=== PATIENT | female | born 1965 | race Hispanic/Latino ===

== ENCOUNTER 2017-03-05 22:49 | Emergency (ER) | payer MEDICARE, MEDICAID ==
[2017-03-05] MEDS ORDERED: Ketorolac Tromethamine 30 MG/ML VIAL ONE (23:39)
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
== END 2017-03-06 00:02 | disposition home or self-care (01) ==
LOC: SCSER 22:49
DX: S83.91XA Sprain of unspecified site of right knee, initial encounter (principal); E11.9 Type 2 diabetes mellitus without complications; I10 Essential (primary) hypertension; J45.909 Unspecified asthma, uncomplicated; F17.210 Nicotine dependence, cigarettes, uncomplicated; V40.5XXA Car driver injured in collision with pedestrian or animal in traffic accident, initial encounter
CPT/HCPCS: 96372; J1885

== ENCOUNTER 2017-03-18 17:38 | Emergency (ER) | payer MEDICARE, MEDICAID ==
[2017-03-18] MEDS ORDERED: predniSONE 20 MG TAB ONE (18:23)
== END 2017-03-18 18:44 | disposition home or self-care (01) ==
LOC: ERS 17:38
DX: T78.40XA Allergy, unspecified, initial encounter (principal); E11.9 Type 2 diabetes mellitus without complications; I10 Essential (primary) hypertension; J45.909 Unspecified asthma, uncomplicated; J43.9 Emphysema, unspecified; F41.9 Anxiety disorder, unspecified; F17.290 Nicotine dependence, other tobacco product, uncomplicated
CPT/HCPCS: 99283; J7506

== ENCOUNTER 2017-03-19 22:55 | Emergency (ER) | payer MEDICARE, MEDICAID | END 2017-03-19 23:24 | disposition left against medical advice (07) | LOC: ERS 22:55 | DX: L29.9 Pruritus, unspecified (principal); E11.9 Type 2 diabetes mellitus without complications; I10 Essential (primary) hypertension; J43.9 Emphysema, unspecified; J45.909 Unspecified asthma, uncomplicated; F41.9 Anxiety disorder, unspecified; F17.290 Nicotine dependence, other tobacco product, uncomplicated | CPT/HCPCS: 99282 ==

== ENCOUNTER 2017-10-10 10:51 | Emergency (ER) | payer MEDICARE, MEDICAID ==
[2017-10-10] MEDS ORDERED: Ketorolac Tromethamine 30 MG/ML VIAL ONE (11:56)
[2017-10-10] MEDS ORDERED: predniSONE 10 MG TAB ONE (11:56)
[2017-10-10] MEDS ORDERED: predniSONE 20 MG TAB ONE (11:56)
== END 2017-10-10 12:19 | disposition home or self-care (01) ==
LOC: SCSER 10:51
DX: M54.10 Radiculopathy, site unspecified (principal); E11.9 Type 2 diabetes mellitus without complications; I10 Essential (primary) hypertension; J43.9 Emphysema, unspecified; F17.210 Nicotine dependence, cigarettes, uncomplicated; Z71.6 Tobacco abuse counseling; Z79.899 Other long term (current) drug therapy
CPT/HCPCS: 96372; 99406; J1885; J7506; J7512

== ENCOUNTER 2017-12-24 13:45 | Outpatient (CLI) | payer MEDICARE, MEDICAID | END 2017-12-24 13:46 | disposition home or self-care (01) | LOC: BICMRI 13:45 | DX: M48.061 Spinal stenosis, lumbar region without neurogenic claudication (principal); M54.5 Low back pain; M99.83 Other biomechanical lesions of lumbar region | CPT/HCPCS: 72148 ==

== ENCOUNTER 2019-01-05 00:17 | Emergency (ER) | payer MEDICARE, OTHER ==
[2019-01-05] MEDS ORDERED: Ketorolac Tromethamine 30 MG/ML VIAL ONE (01:31)
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
== END 2019-01-05 02:27 | disposition home or self-care (01) ==
LOC: ERS 00:17
DX: M25.552 Pain in left hip (principal); E11.9 Type 2 diabetes mellitus without complications; I10 Essential (primary) hypertension; J44.9 Chronic obstructive pulmonary disease, unspecified; F17.210 Nicotine dependence, cigarettes, uncomplicated; Z79.899 Other long term (current) drug therapy
CPT/HCPCS: 72170; 96372; J1885

== ENCOUNTER 2019-05-18 00:27 | Emergency (ER) | payer MEDICARE, OTHER ==
[2019-05-18 01:07] LABS: #Basophils 0.1 thou/uL (0.0-0.2); #Eosinphils 0.3 thou/uL (0.0-0.7); #Monocytes 0.6 thou/uL (0.11-0.59); #Neutrophils 6.2 thou/uL (1.40-6.50); %Basophils 0.9 % (0.0-1.0); %Eosinophils 3.1 % (0.0-10.0); %Lymphocytes 29.1 % (21.0-51.0); %Monocytes 6.2 % (0.0-10.0); %Neutrophils 60.7 % (42.0-75.0); Hemoglobin 16.7 g/dL (12.0-16.0); Mean Corpuscular HGB CONC 36.2 g/dL (32.0-36.0); Mean Corpuscular Hemoglobin 33.5 pg (27.0-31.0); Mean Corpuscular Volume 92.5 fL (78.0-98.0); Platelet Count 242 thou/uL (130-400); RBC Distribution Width 12.6 % (11.5-14.5); Red Blood Cell (RBC) Count 4.97 mill/uL (4.20-5.40); White Blood Cell (WBC) Count 10.2 thou/uL (4.8-10.8)
[2019-05-18] MEDS ORDERED: predniSONE 20 MG TAB ONE (01:11)
[2019-05-18] MEDS ORDERED: Aspirin Chewable 81 MG TAB ONE (01:11)
[2019-05-18] MEDS ORDERED: Albuterol Sulfate 2.5 mg/3 ml Neb ONE (01:13)
[2019-05-18] MEDS ORDERED: Nitroglycerin 0.4 MG TAB 1 EACH ONE (01:19)
[2019-05-18 02:52] LABS: Chloride 108 mmol/L (98-107); Potassium 3.3 mmol/L (3.5-5.1); Sodium 140 mmol/L (136-145)
[2019-05-18 02:53] LABS: Glucose 143 mg/dL (70-105)
[2019-05-18 02:54] LABS: Globulin 3.2 g/dL (2.4-3.5); Protein, Total 7.2 g/dL (6.0-8.3)
[2019-05-18 02:55] LABS: Anion Gap 15 mmol/L (10-20); Bilirubin, Total 0.4 mg/dL (0.2-1.2); Carbon Dioxide 20 mmol/L (22-29)
[2019-05-18 02:56] LABS: Alkaline Phosphatase 124 U/L (40-110)
[2019-05-18 02:57] LABS: Calc. Creatinine Clearance 0 mL/min (70-130); Estimated GFR-MDRD 82
[2019-05-18 02:58] LABS: BUN (Urea Nitrogen) 5 mg/dL (9.8-20.1)
[2019-05-18 02:59] LABS: ALT (SGPT) 37 U/L (8-55); AST (SGOT) 52 U/L (5-34)
[2019-05-18 03:02] LABS: Troponin I Less than 0.010 ng/mL (< 0.028)
--- NOTE | 2019-05-18 07:42 | RAD ---
Chest AP view INDICATION: Chest pain COMPARISON: July 20, 2014 FINDINGS: Lungs:The lungs are clear Cardiac silhouette:The cardiomediastinal silhouette appears within normal limits. Pulmonary vasculature:Normal Pleural spaces:No pleural effusion or pneumothorax is demonstrated. Upper abdomen:No abnormality seen. Osseous structures: No acute osseous abnormality. Additional findings:None. IMPRESSION: No acute cardiopulmonary abnormality.
== END 2019-05-18 03:10 | disposition home or self-care (01) ==
LOC: ERS 00:27
DX: J44.1 Chronic obstructive pulmonary disease with (acute) exacerbation (principal); R07.2 Precordial pain; E11.9 Type 2 diabetes mellitus without complications; I10 Essential (primary) hypertension; Z79.899 Other long term (current) drug therapy; Z79.891 Long term (current) use of opiate analgesic
CPT/HCPCS: 36415; 71045; 80053; 83880; 84484; 85025; 93005; 94640; 94760; J7512; J7611

== ENCOUNTER 2020-02-26 03:41 | Emergency (ER) | payer MEDICARE, MEDICAID ==
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
== END 2020-02-26 04:46 | disposition home or self-care (01) ==
LOC: ERS 03:41
DX: S13.4XXA Sprain of ligaments of cervical spine, initial encounter (principal); E11.9 Type 2 diabetes mellitus without complications; E66.9 Obesity, unspecified; I10 Essential (primary) hypertension; J43.9 Emphysema, unspecified; F17.210 Nicotine dependence, cigarettes, uncomplicated; Z79.899 Other long term (current) drug therapy; V89.2XXA Person injured in unspecified motor-vehicle accident, traffic, initial encounter
CPT/HCPCS: 71046

== ENCOUNTER 2021-03-05 14:02 | Outpatient (CLI) | payer MEDICARE, MEDICAID | END 2021-03-05 14:03 | disposition home or self-care (01) | LOC: BICCT 14:02 | DX: Z12.2 Encounter for screening for malignant neoplasm of respiratory organs (principal); F17.210 Nicotine dependence, cigarettes, uncomplicated; I70.0 Atherosclerosis of aorta; I25.10 Atherosclerotic heart disease of native coronary artery without angina pectoris | CPT/HCPCS: 71271 ==

== ENCOUNTER 2021-09-18 19:04 | Inpatient (IN) | payer MEDICARE, MEDICAID ==
[2021-09-18 19:47] LABS: #Basophils 0.1 thou/uL (0.0-0.2); #Eosinphils 0.2 thou/uL (0.0-0.7); #Lymphocytes 2.1 thou/uL (1.20-3.40); #Monocytes 0.4 thou/uL (0.11-0.59); #Neutrophils 6.3 thou/uL (1.40-6.50); %Basophils 0.8 % (0.0-1.0); %Eosinophils 2.2 % (0.0-10.0); %Lymphocytes 23.2 % (21.0-51.0); %Monocytes 4.3 % (0.0-10.0); %Neutrophils 69.5 % (42.0-75.0); Hemoglobin 16.4 g/dL (12.0-16.0); Mean Corpuscular HGB CONC 33.8 g/dL (32.0-36.0); Mean Corpuscular Hemoglobin 32.2 pg (27.0-31.0); Mean Corpuscular Volume 95.2 fL (78.0-98.0); Platelet Count 230 thou/uL (130-400); RBC Distribution Width 13.1 % (11.5-14.5); Red Blood Cell (RBC) Count 5.08 mill/uL (4.20-5.40); White Blood Cell (WBC) Count 9.1 thou/uL (4.8-10.8)
[2021-09-18] MEDS ORDERED: Nitroglycerin 2% Ointment 1 INCH/1 GM Packet ONE (20:04)
[2021-09-18] MEDS ORDERED: Aspirin Chewable 81 MG TAB ONE (20:04)
[2021-09-18 20:08] LABS: ALT (SGPT) 11 U/L (8-55); AST (SGOT) 11 U/L (5-34); Alkaline Phosphatase 111 U/L (40-110); Anion Gap 17 mmol/L (10-20); BUN (Urea Nitrogen) 8 mg/dL (9.8-20.1); Bilirubin, Total 0.3 mg/dL (0.2-1.2); Calc. Creatinine Clearance 0 mL/min (70-130); Calcium 9.1 mg/dL (7.8-10.44); Carbon Dioxide 20 mmol/L (22-29); Chloride 105 mmol/L (98-107); Glucose 414 mg/dL (70-105); Potassium 3.5 mmol/L (3.5-5.1); Sodium 138 mmol/L (136-145)
[2021-09-18] MEDS ORDERED: Calcium Carbonate 500 MG ChewTAB PO PRN (22:03)
[2021-09-18] MEDS ORDERED: Dextrose 50% Abboject 50 ML SYRINGE SLOW IVP PRN (22:03)
[2021-09-18] MEDS ORDERED: Ondansetron ODT 4 MG TAB PO PRN (22:03)
[2021-09-18] MEDS ORDERED: Melatonin 3 MG TAB PO PRN (22:03)
[2021-09-18] MEDS ORDERED: Dextrose 5% in Water 1,000 ML IV PRN (22:03)
[2021-09-18] MEDS ORDERED: Ondansetron PF 4 MG/2 ML Vial IVP PRN (22:03)
[2021-09-18] MEDS ORDERED: Acetaminophen 325 MG TAB PO PRN (22:03)
[2021-09-18] MEDS ORDERED: Albuterol Sulfate 1.25 MG/3 ML NEB NEB PRN (22:20)
[2021-09-18] MEDS: HYDROcodone/Acetaminophen 10/325 mg Tablet PO PRN (23:17)
[2021-09-18] MEDS: HumaLOG 300 UNITS/3 ML VIAL SC PRN (23:18)
[2021-09-18 23:46] LABS: Troponin I 0.011 ng/mL (< 0.028)
[2021-09-18 23:47] LABS: Cholesterol 174 mg/dl (< 200 Desired); HDL Cholesterol 29 mg/dL (>60 Neg Risk); Triglycerides 724 mg/dL (Less than 150)
[2021-09-19 00:15] VITALS: BMI 34.8
[2021-09-19] MEDS ORDERED: Lidocaine 1% w/Epinephrine 1:100K 20 ML VIAL FS SCH (00:45)
[2021-09-19 02:05] LABS: Troponin I Less than 0.010 ng/mL (< 0.028)
[2021-09-19] MEDS ORDERED: Cyclobenzaprine 10 MG TAB PO SCH ×2 (02:45→21:15)
[2021-09-19] MEDS ORDERED: Triple Antibiotic Ointment 30 GM TUBE TOP SCH (02:45)
[2021-09-19 04:52] LABS: Anion Gap 13 mmol/L (10-20); BUN (Urea Nitrogen) 9 mg/dL (9.8-20.1); Calc. Creatinine Clearance 135 mL/min (70-130); Calcium 8.8 mg/dL (7.8-10.44); Carbon Dioxide 23 mmol/L (22-29); Cardiac Risk 5.9 (Less than 4.5); Chloride 107 mmol/L (98-107); Cholesterol 160 mg/dl (< 200 Desired); Glucose 165 mg/dL (70-105); HDL Cholesterol 27 mg/dL (>60 Neg Risk); Potassium 3.4 mmol/L (3.5-5.1); Sodium 140 mmol/L (136-145); Triglycerides 473 mg/dL (Less than 150)
[2021-09-19] MEDS ORDERED: Potassium Chloride 20 MEQ TAB PO SCH (06:45)
[2021-09-19] MEDS: Mometasone/Formoterol 200/5 60 PUFF INH SCH ×2 (07:21→18:54)
[2021-09-19] MEDS: Alogliptin 25 MG TAB PO SCH (09:41)
[2021-09-19] MEDS: Fenofibrate 48 MG TAB PO SCH (09:41)
[2021-09-19] MEDS: Empagliflozin 10 MG TAB PO SCH (09:41)
[2021-09-19] MEDS: Pregabalin 75 MG CAP PO SCH ×2 (09:42→21:00)
[2021-09-19] MEDS: Polyethylene Glycol 3350 17 GM Packet PO SCH (09:44)
[2021-09-19] MEDS: HYDROcodone/Acetaminophen 10/325 mg Tablet PO PRN ×2 (09:46→17:47)
[2021-09-19] MEDS ORDERED: Regadenoson 0.4 MG/5 ML SYRINGE ONE (09:56)
[2021-09-19] MEDS: HumaLOG 300 UNITS/3 ML VIAL SC PRN ×3 (14:27→21:01)
[2021-09-19 16:37] LABS: SARS-CoV-2 PCR by NAA Not Detected (NotDetected)
[2021-09-19] MEDS: Venlafaxine XR 37.5 MG CAP PO SCH (20:58)
[2021-09-19] MEDS: Atorvastatin Calcium 40 MG TAB PO SCH (21:00)
[2021-09-19] MEDS ORDERED: Lisinopril/Hydrochlorothiazide 20/25 mg Tablet PO SCH (21:00)
[2021-09-19] MEDS ORDERED: Atorvastatin Calcium 20 MG TAB PO SCH (21:00)
[2021-09-20 04:53] LABS: Hemoglobin 15.3 g/dL (12.0-16.0); Mean Corpuscular HGB CONC 34.2 g/dL (32.0-36.0); Mean Corpuscular Hemoglobin 32.4 pg (27.0-31.0); Mean Corpuscular Volume 94.8 fL (78.0-98.0); Platelet Count 227 thou/uL (130-400); RBC Distribution Width 13.1 % (11.5-14.5); Red Blood Cell (RBC) Count 4.72 mill/uL (4.20-5.40); White Blood Cell (WBC) Count 8.9 thou/uL (4.8-10.8)
[2021-09-20 05:22] LABS: BUN (Urea Nitrogen) 7 mg/dL (9.8-20.1); Calc. Creatinine Clearance 122 mL/min (70-130); Calcium 8.9 mg/dL (7.8-10.44); Carbon Dioxide 25 mmol/L (22-29); Chloride 105 mmol/L (98-107); Glucose 203 mg/dL (70-105); Magnesium 2.3 mg/dL (1.6-2.6); Phosphorus 4.1 mg/dL (2.3-4.7); Potassium 3.7 mmol/L (3.5-5.1); Sodium 140 mmol/L (136-145)
[2021-09-20 05:26] LABS: Anion Gap 14 mmol/L (10-20)
[2021-09-20] MEDS: HumaLOG 300 UNITS/3 ML VIAL SC PRN ×4 (05:45→22:04)
[2021-09-20] MEDS: Mometasone/Formoterol 200/5 60 PUFF INH SCH ×2 (07:19→18:31)
[2021-09-20] MEDS: Alogliptin 25 MG TAB PO SCH (10:05)
[2021-09-20] MEDS: Pregabalin 75 MG CAP PO SCH ×2 (10:05→20:46)
[2021-09-20] MEDS: Empagliflozin 10 MG TAB PO SCH (10:06)
[2021-09-20] MEDS: Fenofibrate 48 MG TAB PO SCH (10:06)
[2021-09-20] MEDS: Polyethylene Glycol 3350 17 GM Packet PO SCH (10:06)
[2021-09-20] MEDS: HYDROcodone/Acetaminophen 10/325 mg Tablet PO PRN ×2 (10:10→19:00)
[2021-09-20] MEDS ORDERED: Promethazine 25 MG TAB PO SCH (12:45)
[2021-09-20] MEDS ORDERED: Aspirin 81 mg Enteric Coated Tablet PO SCH (16:15)
[2021-09-20] MEDS ORDERED: hydrOXYzine 10 MG TAB PO PRN (17:35)
[2021-09-20] MEDS: Atorvastatin Calcium 40 MG TAB PO SCH (20:46)
[2021-09-20] MEDS: Venlafaxine XR 37.5 MG CAP PO SCH (20:46)
[2021-09-20] MEDS: Lisinopril/Hydrochlorothiazide 20/25 mg Tablet PO SCH (22:03)
[2021-09-20] MEDS ORDERED: Cyclobenzaprine 10 MG TAB PO SCH (23:30)
[2021-09-21] MEDS: Mometasone/Formoterol 200/5 60 PUFF INH SCH ×2 (07:11→18:52)
[2021-09-21] MEDS: HumaLOG 300 UNITS/3 ML VIAL SC PRN ×4 (07:30→21:21)
[2021-09-21] MEDS ORDERED: Empagliflozin 10 MG TAB PO SCH (08:46)
[2021-09-21] MEDS ORDERED: Communication Order-Pharmacy FS SCH (09:15)
[2021-09-21] MEDS: Aspirin 81 mg Enteric Coated Tablet PO SCH (09:52)
[2021-09-21] MEDS: Pregabalin 75 MG CAP PO SCH ×2 (09:52→21:18)
[2021-09-21] MEDS: Empagliflozin 25 MG TAB PO SCH (09:53)
[2021-09-21] MEDS: Polyethylene Glycol 3350 17 GM Packet PO SCH (09:54)
[2021-09-21] MEDS: Fenofibrate 48 MG TAB PO SCH (09:54)
[2021-09-21] MEDS: Alogliptin 25 MG TAB PO SCH (09:54)
[2021-09-21] MEDS: HYDROcodone/Acetaminophen 10/325 mg Tablet PO PRN ×2 (10:00→16:30)
[2021-09-21] MEDS: Icosapent Ethyl 1 GM CAPSULE PO SCH ×2 (10:00→21:57)
[2021-09-21] MEDS ORDERED: hydrOXYzine 25 MG TAB PO PRN (10:33)
[2021-09-21 17:18] LABS: Troponin I 0.013 ng/mL (< 0.028)
[2021-09-21] MEDS ORDERED: Atorvastatin Calcium 20 MG TAB PO SCH (21:00)
[2021-09-21] MEDS: Lisinopril/Hydrochlorothiazide 20/25 mg Tablet PO SCH (21:17)
[2021-09-21] MEDS: Atorvastatin Calcium 40 MG TAB PO SCH (21:18)
[2021-09-21] MEDS ORDERED: Cyclobenzaprine 10 MG TAB PO SCH (22:45)
[2021-09-22] MEDS: Pregabalin 75 MG CAP PO SCH (05:38)
[2021-09-22] MEDS: Icosapent Ethyl 1 GM CAPSULE PO SCH (05:39)
[2021-09-22] MEDS: Fenofibrate 48 MG TAB PO SCH (05:39)
[2021-09-22] MEDS: Aspirin 81 mg Enteric Coated Tablet PO SCH (05:39)
[2021-09-22] MEDS: HYDROcodone/Acetaminophen 10/325 mg Tablet PO PRN (05:51)
[2021-09-22] MEDS: Sodium Chloride 0.9% 1,000 ML IV SCH ×2 (06:11→14:00)
[2021-09-22] MEDS: Mometasone/Formoterol 200/5 60 PUFF INH SCH (06:49)
[2021-09-22] MEDS ORDERED: Lidocaine 1% (PF) 30 ML VIAL ONE ×2 (07:32→10:57)
[2021-09-22] MEDS ORDERED: Insulin Glargine 30 UNITS/0.3 ML VIAL SC SCH (09:00)
[2021-09-22] MEDS ORDERED: Communication Order-Pharmacy FS SCH (09:45)
[2021-09-22] MEDS ORDERED: Iopamidol 370 76% 50 ML VIAL FS ONE (10:17)
[2021-09-22] MEDS ORDERED: Iopamidol 370 76% 100 ML VIAL ONE (10:17)
[2021-09-22] MEDS ORDERED: Nitroglycerin 100MG/250ML BOT 250 ML ONE (10:57)
[2021-09-22] MEDS ORDERED: Verapamil 5 MG/2 ML VIAL ONE (10:57)
[2021-09-22] MEDS ORDERED: Heparin 10,000 UNITS/ 10 ML VIAL ONE (10:57)
[2021-09-22] MEDS: Alogliptin 25 MG TAB PO SCH (10:59)
[2021-09-22] MEDS: Empagliflozin 25 MG TAB PO SCH (10:59)
[2021-09-22] MEDS: Polyethylene Glycol 3350 17 GM Packet PO SCH (11:00)
[2021-09-22] MEDS ORDERED: Fentanyl 100 MCG/2 ML VIAL ONE (11:53)
[2021-09-22] MEDS ORDERED: Midazolam HCl 2 mg/2 ml Vial ONE ×2 (11:54→13:12)
[2021-09-22 12:30] VITALS: BP 99/57; TEMP 97.6
[2021-09-22] MEDS ORDERED: Nitroglycerin 0.4 MG TAB (25 Tab Bottle) SL PRN (14:04)
[2021-09-22] MEDS ORDERED: Acetaminophen/Codeine 30-300mg Tablet PO PRN (14:04)
[2021-09-22] MEDS ORDERED: Sodium Chloride 0.9% 200 ML IV PRN (14:04)
[2021-09-22] MEDS ORDERED: HYDROcodone/Acetaminophen 10/325 mg Tablet PO PRN (14:30)
== END 2021-09-22 19:21 | disposition left against medical advice (07) | DRG 286 ==
LOC: ERS 19:04 → 2SW 21:08 → OBSVTOIN 09-20 15:49
PROVIDERS: ADMIT Family Medicine; ATTEND Emergency Medicine
PROC: 0H98XZZ Drainage of Buttock Skin, External Approach (ICD-10-PCS; 2021-09-19)
PROC: 4A023N7 Measurement of Cardiac Sampling and Pressure, Left Heart, Percutaneous Approach (ICD-10-PCS; principal; 2021-09-22)
PROC: B2151ZZ Fluoroscopy of Left Heart using Low Osmolar Contrast (ICD-10-PCS; 2021-09-22)
PROC: B2111ZZ Fluoroscopy of Multiple Coronary Arteries using Low Osmolar Contrast (ICD-10-PCS; 2021-09-22)
PROC: B3101ZZ Fluoroscopy of Thoracic Aorta using Low Osmolar Contrast (ICD-10-PCS; 2021-09-22)
DX: I25.118 Atherosclerotic heart disease of native coronary artery with other forms of angina pectoris (principal); I50.23 Acute on chronic systolic (congestive) heart failure; F11.20 Opioid dependence, uncomplicated; L02.31 Cutaneous abscess of buttock; R07.89 Other chest pain; E78.1 Pure hyperglyceridemia; E11.51 Type 2 diabetes mellitus with diabetic peripheral angiopathy without gangrene; J44.9 Chronic obstructive pulmonary disease, unspecified; F41.9 Anxiety disorder, unspecified; I25.82 Chronic total occlusion of coronary artery; I11.0 Hypertensive heart disease with heart failure; Z20.822 Contact with and (suspected) exposure to COVID-19; J45.40 Moderate persistent asthma, uncomplicated; G89.29 Other chronic pain; R94.39 Abnormal result of other cardiovascular function study; E78.5 Hyperlipidemia, unspecified; E11.65 Type 2 diabetes mellitus with hyperglycemia; Z88.5 Allergy status to narcotic agent; Z88.2 Allergy status to sulfonamides; Z79.899 Other long term (current) drug therapy; Z79.51 Long term (current) use of inhaled steroids; Z90.49 Acquired absence of other specified parts of digestive tract; Z90.710 Acquired absence of both cervix and uterus; Z95.818 Presence of other cardiac implants and grafts
CPT/HCPCS: 36415; 36416; 71045; 75630; 78452; 80048; 80053; 80061; 83735; 83880; 84100; 84484; 85025; 85027; 93005; 93010; 93017; 93458; 96374; 99153; A9500; G0378; J1644; J1815; J2001; J2250; J2405; J2785; J3010; J7050; Q0169; Q9967; U0003; U0005

== ENCOUNTER 2021-10-02 02:43 | Emergency (ER) | payer MEDICARE, MEDICAID ==
[2021-10-02 03:19] LABS: #Basophils 0.1 thou/uL (0.0-0.2); #Eosinphils 0.2 thou/uL (0.0-0.7); #Lymphocytes 2.7 thou/uL (1.20-3.40); #Monocytes 0.5 thou/uL (0.11-0.59); #Neutrophils 4.8 thou/uL (1.40-6.50); %Basophils 0.9 % (0.0-1.0); %Eosinophils 2.9 % (0.0-10.0); %Lymphocytes 32.5 % (21.0-51.0); %Monocytes 6.3 % (0.0-10.0); %Neutrophils 57.3 % (42.0-75.0); Hemoglobin 15.5 g/dL (12.0-16.0); Mean Corpuscular HGB CONC 34.6 g/dL (32.0-36.0); Mean Corpuscular Hemoglobin 32.6 pg (27.0-31.0); Mean Corpuscular Volume 94.2 fL (78.0-98.0); Mean Platelet Volume 7.4 fL (7.4-10.4); Platelet Count 248 thou/uL (130-400); Red Blood Cell (RBC) Count 4.76 mill/uL (4.20-5.40); White Blood Cell (WBC) Count 8.3 thou/uL (4.8-10.8)
[2021-10-02 03:39] LABS: ALT (SGPT) 10 U/L (8-55); AST (SGOT) 10 U/L (5-34); Albumin 3.8 g/dL (3.5-5.0); Alkaline Phosphatase 94 U/L (40-110); Anion Gap 14 mmol/L (10-20); BUN (Urea Nitrogen) 12 mg/dL (9.8-20.1); Bilirubin, Total 0.2 mg/dL (0.2-1.2); Calc. Creatinine Clearance 0 mL/min (70-130); Carbon Dioxide 21 mmol/L (22-29); Chloride 110 mmol/L (98-107); Globulin 2.3 g/dL (2.4-3.5); Glucose 163 mg/dL (70-105); Potassium 3.5 mmol/L (3.5-5.1); Protein, Total 6.1 g/dL (6.0-8.3); Sodium 141 mmol/L (136-145)
== END 2021-10-02 04:50 | disposition home or self-care (01) ==
LOC: ERS 02:43
DX: R07.9 Chest pain, unspecified (principal); I11.0 Hypertensive heart disease with heart failure; I50.9 Heart failure, unspecified; E11.9 Type 2 diabetes mellitus without complications; J44.9 Chronic obstructive pulmonary disease, unspecified; F17.210 Nicotine dependence, cigarettes, uncomplicated; Z79.899 Other long term (current) drug therapy
CPT/HCPCS: 36415; 71045; 80053; 80179; 84484; 85025; 93005; 80307

== ENCOUNTER 2022-07-17 07:47 | Day surgery (SDC) | payer OTHER, MEDICAID ==
[2022-07-15 14:06] VITALS: BMI 34.1
[2022-07-17] MEDS ORDERED: Lidocaine 1% PF 5 ML VIAL ONE (09:57)
[2022-07-17] MEDS ORDERED: PROPOFOL 200 MG/20 ML VIAL ONE (09:58)
== END 2022-07-17 10:41 | disposition home or self-care (01) ==
LOC: SDC 07:47
PROVIDERS: ATTEND Internal Medicine Gastroenterology
PROC: 0DJ08ZZ Inspection of Upper Intestinal Tract, Via Natural or Artificial Opening Endoscopic (ICD-10-PCS; principal; 2022-07-17)
PROC: 0D757ZZ Dilation of Esophagus, Via Natural or Artificial Opening (ICD-10-PCS; 2022-07-17)
DX: K21.9 Gastro-esophageal reflux disease without esophagitis (principal); F45.8 Other somatoform disorders; R07.0 Pain in throat; F17.210 Nicotine dependence, cigarettes, uncomplicated; I10 Essential (primary) hypertension; E11.9 Type 2 diabetes mellitus without complications; G89.29 Other chronic pain; M54.9 Dorsalgia, unspecified; I25.10 Atherosclerotic heart disease of native coronary artery without angina pectoris; I25.2 Old myocardial infarction; E78.00 Pure hypercholesterolemia, unspecified; J43.9 Emphysema, unspecified; Z86.010 Personal history of colon polyps; Z79.82 Long term (current) use of aspirin; Z79.84 Long term (current) use of oral hypoglycemic drugs; Z79.899 Other long term (current) drug therapy; Z88.2 Allergy status to sulfonamides; Z88.5 Allergy status to narcotic agent
CPT/HCPCS: J2704